=== PATIENT | male | born 1985 | race Hispanic/Latino ===

== ENCOUNTER → 2019-07-21 | Outpatient (CLI) | payer SELFPAY ==
[~2019-07-21] VITALS: Ht 5.1 cm; Wt 211.4 kg
--- NOTE | 2019-07-21 11:36 | NUR ---
Bariatric Initial Assessment Visit 1 out of 3 Time of Visit: 10:15am-11:00am Pt seeking weight loss surgery for improved quality of life. Pt with multiple attempts at weight loss in the past through Diet modification, [place] Diet pills, and HCG treatments. Pt mentioned past weight reduction attempts that resulted in minimal weight loss, had weight re-gain plus more and treatments were very costly to continue. Pt strongly desires wt loss for prevention of further exacerbation of chronic disease, in addition pt desirers to wean off current medications. Pt with family medical history of obesity and Diabetes. Pt reports being overweight during adolescent years however, noticed the most weight gain in the past 5 years that has led him to his current weight of 466#. Pt mentioned never seeing a Dietitian/ Machine Tracer in the past regarding his weight. Pt is aware of the importance to making long-lasting lifestyle modifications post surgery procedure. He is interested and motivated about having this procedure done. Pt has a strong support system at home which is his . Pt and do not have any children at this time. Pt currently faces several challenges regarding diet and nutrition such as consuming sugar sweetened beverages daily, limited physical activity- lives a sedentary lifestyle, pt and eat out nearly every day, pt with limited knowledge on how to choose healthier food options when eating out. Lastly, pt unfamiliar with what to look for when reading food labels. RD provided Healthy My Plate nutrition recommendations to promote healthy meal planning and encourage improved healthful intake. RD emphasized the importance of developing long-lasting, healthful lifestyle habits. Education materials and goals were established and provided to pt to take home and review with his . Pt has set goals to meet for the upcoming month to review during follow up visit: 1) Limit sugar sweetened beverages to having 4 per week instead of his usual intake of 7 sodas per week. 2) Incorporate Healthy My Plate at each meal- including when eating at fast food restaurants. 3) Practice reading food labels at home and when at the grocery store. Addendum: 07/21/19 at [address] Amended: Links added.
== END | disposition home or self-care (01) ==
LOC: DTH 09:47
PROVIDERS: ATTEND Surgery
DX: Z71.3 Dietary counseling and surveillance (principal); E66.09 Other obesity due to excess calories; E11.9 Type 2 diabetes mellitus without complications
CPT/HCPCS: 97802